=== PATIENT | female | born 1960 | race Caucasian/White ===

== ENCOUNTER 2022-04-17 21:55 | Emergency (ER) | payer OTHER ==
[~2022-04-17 21:55] MED LIST: COZAAR100 MG PO; EFFEXOR XR150 MG PO; ETODOLAC400 MG PO; GLUCOPHAGE XR500 MG PO; MEDROL4 MG PO; OMEPRAZOLE20 MG PO; SYMBICORT 80-10.2 GM INH
[2022-04-17 22:24] LABS: RED BLOOD COUNT 5.26 M/UL (4.00-5.10); WHITE BLOOD COUNT 15.9 K/UL (4.5-11.0)
[2022-04-17 22:47] LABS: BUN/CREATININE RATIO 24 (0-10)
== END 2022-04-18 09:18 | disposition other institution (70) ==
LOC: ER1 21:55
PROVIDERS: Student in an Organized Health Care Education/Training Program
DX: K56.609 Unspecified intestinal obstruction, unspecified as to partial versus complete obstruction (principal); K43.5 Parastomal hernia without obstruction or gangrene; E11.9 Type 2 diabetes mellitus without complications; I50.9 Heart failure, unspecified; J44.9 Chronic obstructive pulmonary disease, unspecified; F17.210 Nicotine dependence, cigarettes, uncomplicated; Z20.822 Contact with and (suspected) exposure to COVID-19; Z88.0 Allergy status to penicillin
CPT/HCPCS: 0240U; 80053; 81001; 83605; 83690; 85025; 87086; 93005; 96374; 96375; 96376; 99285; J1170; J2405; Q9967